=== PATIENT | male | born 1995 | race Caucasian/White ===

== ENCOUNTER → 2020-09-13 11:02 | Outpatient (CLI) | payer BC, SELFPAY ==
[2020-09-13 10:45] VITALS: BMI 21.7
[2020-09-13 12:41] LABS: Microalbumin,Random Urine 49.9 mg/L (NO RANGE EST.); Microalbumin:Creatinine Ratio 15.9 mg/g CRE (<30 mg/g CRE)
[2020-09-13 13:41] LABS: ALB/GLOB Ratio 1.2 RATIO (0.9-2.4); AST(SGOT) 19 U/L (15-37); Alanine Aminotransfer ALT/SGPT 22 U/L (16-61); Albumin, Serum 3.9 g/dL (3.2-5.0); Alkaline Phosphatase 92 U/L (45-117); Anion Gap 13 (5-15); BUN 15 mg/dL (7-18); BUN/Creat Ratio 17.8 RATIO (10-20); Calcium,Total 9.4 mg/dL (8.5-10.1); Chloride 105 mmol/L (98-107); Cholesterol 218 mg/dL (200); Creatinine, Serum 0.84 mg/dL (0.70-1.30); EST Glomerular Filtration Rate 120 mL/min (>60); Est Glom Filt Rate - Afr Amer 145 mL/min (>60); Globulin 3.2 g/dL (2.2-4.2); Glucose 166 mg/dL (74-106); High Density Lipoprotein 64 mg/dL; Potassium 3.4 mmol/L (3.5-5.1); Protein, Total 7.1 g/dL (6.4-8.2); Sodium Level 142 mmol/L (136-145); Thyroid Stim Hormone (TSH) 2.83 uIU/mL (0.358-3.74); Triglycerides 208 mg/dL; Very Low Density Lipoprotein 42 mg/dL (5-40)
[2020-09-14 07:16] LABS: Thyroid Peroxidase AB < 9 IU/mL (0-34)
== END ==
PROVIDERS: PCP Family Medicine; Visit Provider Internal Medicine Endocrinology, Diabetes & Metabolism
DX: E10.65 Type 1 diabetes mellitus with hyperglycemia (principal); Z91.19 Patient's noncompliance with other medical treatment and regimen
CPT/HCPCS: 36415; 80053; 80061; 82043; 82570; 84443; 86376

== ENCOUNTER 2021-05-17 14:20 | Outpatient (CLI) | payer BC, SELFPAY ==
[2021-05-17 15:51] LABS: Vitamin D,25 Hydroxy 17.3 ng/mL
[2021-05-17 16:39] LABS: ALB/GLOB Ratio 1.3 RATIO (0.9-2.4); AST(SGOT) 14 U/L (15-37); Alanine Aminotransfer ALT/SGPT 17 U/L (16-61); Albumin, Serum 4.1 g/dL (3.2-5.0); Alkaline Phosphatase 76 U/L (45-117); Anion Gap 5 (5-15); BUN 16 mg/dL (7-18); BUN/Creat Ratio 19.2 RATIO (10-20); Calcium,Total 9.1 mg/dL (8.5-10.1); Chloride 103 mmol/L (98-107); Creatinine, Serum 0.83 mg/dL (0.70-1.30); EST Glomerular Filtration Rate 120 mL/min (>60); Est Glom Filt Rate - Afr Amer 145 mL/min (>60); Globulin 3.2 g/dL (2.2-4.2); Glucose 230 mg/dL (74-106); Luteinizing Hormone 7.3 mIU/mL; Potassium 4.1 mmol/L (3.5-5.1); Protein, Total 7.3 g/dL (6.4-8.2); Sodium Level 136 mmol/L (136-145); Thyroid Stim Hormone (TSH) 1.49 uIU/mL (0.358-3.74)
[2021-05-21 15:07] LABS: Testosterone, Free 21.58 ng/dL (5.00-21.00)
[2021-05-22 08:30] LABS: Testosterone, % Free 3.11 % (1.50-4.20); Testosterone, Total 694 ng/dL (264-916)
== END 2021-05-17 23:59 | disposition home or self-care (01) ==
LOC: BIMLAB 14:21
PROVIDERS: PCP Family Medicine; Referring Provider Internal Medicine Endocrinology, Diabetes & Metabolism; Visit Provider Internal Medicine Endocrinology, Diabetes & Metabolism
DX: E10.65 Type 1 diabetes mellitus with hyperglycemia (principal); N52.9 Male erectile dysfunction, unspecified; E55.9 Vitamin D deficiency, unspecified
CPT/HCPCS: 36415; 80053; 82306; 83001; 83002; 84146; 84402; 84403; 84443

== ENCOUNTER 2021-07-16 16:47 | Emergency (ER) | payer BC, SELFPAY ==
[2021-07-16 16:49] VITALS: BP 131/85; PULSE 86; RESP 18; TEMP 36.2; O2SAT 96; BMI 22.1
[2021-07-16] MEDS: 0.9% Normal Saline 1,000 ML 1000 ML IV ×2 (17:32→18:34)
[2021-07-16 17:40] LABS: Absolute Lymphocyte Count 2.11 X10^3/uL (0.83-4.51); Absolute Neutrophil Count 6.6 X10^3/uL (2.0-7.7); Basophil# 0.02 X10^3/uL; Basophil% 0.2 % (0-1); Eosinophil# 0.24 X10^3/uL; Eosinophils% 2.6 % (0-5); Hematocrit 47.7 % (40-54); Hemoglobin 16.4 g/dL (13.0-16.5); Lymphocyte # 2.11 X10^3/ul (0.83-4.51); Lymphocyte % 22.5 % (19-41); Mean Corp Hgb Conc 34.4 g/dL (32-36); Mean Corpuscular Hgb 27.9 pg (27.0-32.0); Mean Corpuscular Volume 81.3 fL (80-94); Mean Platelet Vol. 9.7 fl (6.2-12.0); Monocyte# 0.37 X10^3/uL; Monocyte% 3.9 % (0-10); NRBC Flagged by Analyzer 0 % (0-5); Neutrophil # 6.59 X10^3/uL (2.7-7.7); Neutrophil % 70.4 % (47-70); Platelet Count 260 K/mm3 (150-450); RBC Distribution Width SD 35.7 fl (35.1-43.9); Red Blood Count 5.87 M/mm3 (4.6-6.2); White Blood Count 9.4 K/mm3 (4.4-11.0)
[2021-07-16 17:56] LABS: Anion Gap 5 (5-15); BUN 12 mg/dL (7-18); BUN/Creat Ratio 12.8 RATIO (10-20); Calcium,Total 9.4 mg/dL (8.5-10.1); Chloride 104 mmol/L (98-107); Creatinine, Serum 0.93 mg/dL (0.70-1.30); EST Glomerular Filtration Rate 105 mL/min (>60); Est Glom Filt Rate - Afr Amer 127 mL/min (>60); Estimated Creatinine Clearance 142.57 ml/min; Glucose 192 mg/dL (74-106); Potassium 3.5 mmol/L (3.5-5.1); Sodium Level 138 mmol/L (136-145)
--- NOTE | 2021-07-16 18:54 | EX.ED.DYSGE1 ---
HPI History of Present Illness Chief Complaint: Diarrhea Informant: patient Onset/Context/Timing Onset: Days Context: Gradual Onset Timing: Continuous Quality: liquid Current Severity: Moderate Worsened by: taking PO Associated Symptoms Associated Symptoms: none Narrative Narrative: Patient presents for diarrhea. This is liquid. Nonbloody. Has been going on for about 5 days. Many episodes per day. Every time he eats or drinks anything. He tried taking fiber and Imodium with no improvement. No pain. No fevers. No history of this. No recent hospitalizations or antibiotic use. He is concerned because he is getting dehydrated. He is also concerned because he has a history of type 1 diabetes. Prior similar symptoms: No Recent Illness/Hospitalization: No PFSH PFS Medical History Type 1 diabetes Home Medications ciprofloxacin HCl [Cipro] 500 mg PO Q12H 3 Days #6 tab 07/16/21 [Rx Last Taken Unknown] insulin asp prt-insulin aspart [Novolog Mix 70-30 U-100 Insuln] 0 unit SUBCUT TIDCM 07/16/21 [History Last Taken Unknown] insulin degludec [Tresiba FlexTouch U-100] 30 unit SUBCUT QHS 07/16/21 [History Last Taken Unknown] metronidazole 500 mg PO Q8H 10 Days #30 tab 07/16/21 [Rx Last Taken Unknown] multivitamin with minerals [Men's One Daily] 1 tab PO DAILY 07/16/21 [History Last Taken Unknown] Allergy/AdvReac Type Severity Reaction Status Date / Time No Known Allergies Allergy Verified 07/16/21 16:49 Social History Smoking Status: Never smoker ROS [facility] ED Constitutional Constitutional ED: Denies chills or fever(s) Eyes Eyes: Denies change in vision ENT ENT ED: Denies ear pain Cardiovascular Cardiovascular: Denies chest pain Respiratory/Chest Respiratory/Chest: Denies dyspnea Gastrointestinal Gastrointestinal: Reports diarrhea; Denies abdominal pain, melena or vomiting Genitourinary Genitourinary ED: Denies dysuria Musculoskeletal Musculoskeletal: Denies myalgias Integumentary Denies rash Neurologic Neurologic: Denies headache(s) Psychiatric Psychiatric: Denies depression Endocrine Endocrinology: Denies polyuria Allergic/Immunologic Allergic/Immunologic ED: Denies urticaria EXAM Physical Exam Const Vital Signs: 07/16/21 16:49 Temperature 97.2 F L Temperature Source Temporal Pulse Rate 86 Respiratory Rate 18 Blood Pressure 131/85 H Blood Pressure Mean 100 Pulse Ox 96 Oxygen Delivery Method Room Air Positive well nourished and well developed General Appearance ED: well developed HEENT Reports moist mucous membranes Negative for trauma or tenderness Eyes EOMs intact bilaterally Neck supple Resp normal respiratory effort Cardio regular rate GI normal to inspection, nondistended, normoactive bowel sounds, non-tender and non-distended Palpation: soft Extremity normal to inspection General Extremety ED: Negative for edema or tenderness General Extremity: Negative for edema Neuro oriented x3 Sensorium / Orientation: alert Psych mental status grossly normal MDM MDM MDM Narrative Medical decision making narrative: Patient was treated with IV fluids. His glucose was 192. CO2 and anion gap were unremarkable. White count was normal. The remainder of his testing was unremarkable. Stool testing is still pending at this time. He presented 1 sample here which was liquid stool. He had a fluid bolus of 2 L. This will improve his glucose. He is able to monitor his glucose at home and will return if it is out of control. Stay hydrated. Stop taking fiber. Stop taking Imodium if it is not helping. Given the duration of his symptoms as well as the liquid nature of his stool, will start Cipro and Flagyl. Follow-up with primary care. Return if worse. Impression #1 diarrheal illness Impression #2 type 1 diabetes Disposition discharge home Lab Data Attestation: I reviewed the patient's lab results. Labs: Laboratory Results - last 24 hr 07/16/21 07/16/21 17:30 17:30 WBC 9.4 RBC 5.87 Hgb 16.4 Hct 47.7 MCV 81.3 MCH 27.9 MCHC 34.4 RDW Std Deviation 35.7 RDW Coeff of Merlyn 12.0 Plt Count 260 MPV 9.7 Immature Gran % (Auto) 0.400 Neut % (Auto) 70.4 H Lymph % (Auto) 22.5 Howard % (Auto) 3.9 Eos % (Auto) 2.6 Baso % (Auto) 0.2 Absolute Neuts (auto) 6.6 Absolute Lymphs (auto) 2.11 Nucleated RBC % 0 Sodium 138 Potassium 3.5 Chloride 104 Carbon Dioxide 29.0 Anion Gap 5 BUN 12 Creatinine 0.93 Estim Creat Clear Calc 142.57 Est GFR (MDRD) Af Amer 127 Est GFR (MDRD) Non-Af 105 BUN/Creatinine Ratio 12.8 Glucose 192 H Calcium 9.4 Discharge Plan Triage Chief Complaint: Diarrhea ED Provider: Wesley Sanchez Dx/Rx/DC Orders Instructions: ED Diarrhea, Unknown Cause Prescriptions: New ciprofloxacin HCl [Cipro] 500 mg tablet 500 mg PO Q12H 3 Days Qty: 6 RF: 0 metronidazole 500 mg tablet 500 mg PO Q8H 10 Days Qty: 30 RF: 0 No Action Men's One Daily Tablet 1 tab PO DAILY RF: 0 Novolog Mix 70-30 U-100 Insuln 100 unit/mL (70-30) Cartridge 0 unit SUBCUT TIDCM RF: 0 Tresiba FlexTouch U-100 100 unit/mL (3 mL) Insulin Pen 30 unit SUBCUT QHS RF: 0 Primary Care Provider: Anil Talavera Referrals: Anil Talavera MD [Primary Care Provider] - Disposition Disposition: Home, Self Care
[2021-07-16] MEDS: metroNIDAZOLE 500 MG Tablet PO (19:03)
[2021-07-16 19:04] VITALS: BP 126/78; PULSE 85; RESP 15; TEMP 36.7; O2SAT 99
[2021-07-16] MEDS: Ciprofloxacin 500 MG Tablet PO (19:04)
== END 2021-07-16 19:10 | disposition home or self-care (01) ==
PROVIDERS: Emergency Provider Emergency Medicine; PCP Family Medicine; Visit Provider Emergency Medicine
DX: R19.7 Diarrhea, unspecified (principal); E10.9 Type 1 diabetes mellitus without complications; Z79.4 Long term (current) use of insulin
CPT/HCPCS: 80048; 85025; 87506; 96360; 99284; J7030; A4216

== ENCOUNTER → 2023-10-08 | Outpatient (CLI) | payer OTHER, SELFPAY ==
[2023-10-08 11:00] LABS: Microalbumin,Random Urine 10.1 mg/L (NO RANGE EST.); Microalbumin:Creatinine Ratio 8.2 mg/g CRE (<30 mg/g CRE)
[2023-10-08 11:13] LABS: ALB/GLOB Ratio 1.4 RATIO (0.9-2.4); AST(SGOT) 9 U/L (15-37); Alanine Aminotransfer ALT/SGPT 17 U/L (16-61); Albumin, Serum 4.2 g/dL (3.2-5.0); Alkaline Phosphatase 55 U/L (45-117); Anion Gap 6 (5-15); BUN 14 mg/dL (7-18); BUN/Creat Ratio 19.7 RATIO (10-20); Calcium,Total 9.4 mg/dL (8.5-10.1); Chloride 105 mmol/L (98-107); Cholesterol 162 mg/dL (200); Creatinine, Serum 0.71 mg/dL (0.70-1.30); EST Glomerular Filtration Rate 141 mL/min (>60); Est Glom Filt Rate - Afr Amer 171 mL/min (>60); Globulin 3.1 g/dL (2.2-4.2); Glucose 70 mg/dL (74-106); High Density Lipoprotein 59 mg/dL; Potassium 3.5 mmol/L (3.5-5.1); Protein, Total 7.3 g/dL (6.4-8.2); Sodium Level 140 mmol/L (136-145); Thyroid Stim Hormone (TSH) 1.83 uIU/mL (0.358-3.74); Triglycerides 52 mg/dL; Very Low Density Lipoprotein 10 mg/dL (5-40)
[2023-10-08 14:28] LABS: Vitamin D,25 Hydroxy 30.7 ng/mL
== END | disposition home or self-care (01) ==
LOC: LAB 09:38
PROVIDERS: Referring Provider Nurse Practitioner Family; Visit Provider Nurse Practitioner Family
DX: E10.65 Type 1 diabetes mellitus with hyperglycemia (principal)
CPT/HCPCS: 36415; 80053; 80061; 82043; 82306; 82570; 84443